=== PATIENT | male | born 1990 | race Caucasian/White ===

== ENCOUNTER 2017-06-17 12:00 | Emergency (ER) | payer OTHER ==
[~2017-06-17] VITALS: Ht 180.3 cm; Wt 62.1 kg
[2017-06-17 12:02] VITALS: BP 147/96
[2017-06-17] MEDS ORDERED: PROPARACAINE OPHTH 0.5%, 15ML EACHEYE ONE (13:30)
[2017-06-17] MEDS ORDERED: FLUORESCEIN OPHTHALMIC 1 MG STRIP EACHEYE ONE (13:30)
[2017-06-17] MEDS ORDERED: FLUORESCEIN OPHTHALMIC 1 MG STRIP ONE (13:40)
[2017-06-17] MEDS ORDERED: PROPARACAINE OPHTH 0.5%, 15ML ONE (13:40)
== END 2017-06-17 14:29 | disposition home or self-care (01) ==
LOC: ED 14:15
DX: T15.92XA Foreign body on external eye, part unspecified, left eye, initial encounter (principal); M25.562 Pain in left knee; X58.XXXA Exposure to other specified factors, initial encounter; Y93.89 Activity, other specified; Y92.89 Other specified places as the place of occurrence of the external cause; Y99.8 Other external cause status
CPT/HCPCS: 65222; 99285

== ENCOUNTER 2017-06-17 18:36 | Emergency (ER) | payer OTHER ==
[2017-06-17] MEDS ORDERED: FLUORESCEIN OPHTHALMIC 1 MG STRIP ONE (18:53)
[2017-06-17] MEDS ORDERED: PROPARACAINE OPHTH 0.5%, 15ML ONE (18:53)
[2017-06-17 19:41] VITALS: BP 130/90
== END 2017-06-17 19:43 | disposition home or self-care (01) ==
LOC: ED 19:35
DX: S05.02XA Injury of conjunctiva and corneal abrasion without foreign body, left eye, initial encounter (principal); X58.XXXA Exposure to other specified factors, initial encounter; Y93.89 Activity, other specified; Y92.89 Other specified places as the place of occurrence of the external cause; Y99.8 Other external cause status
CPT/HCPCS: 99283

== ENCOUNTER 2017-06-24 00:59 | Emergency (ER) | payer OTHER ==
[~2017-06-24] VITALS: Ht 180.3 cm; Wt 64.0 kg
[2017-06-24] MEDS ORDERED: ZIPRASIDONE 20 MG INJ IM ONE ×4 (01:42→03:17)
[2017-06-24 02:46] LABS: DAU SCREEN DISCLAIMER
[2017-06-24 02:48] LABS: HEMATOCRIT 45.8 % (39.2-51.8); HEMOGLOBIN 15.7 g/dL (13.7-18.0); WHITE BLOOD COUNT 5.8 x10^3/uL (3.4-10)
[2017-06-24 02:55] LABS: BLOOD UREA NITROGEN 11 mg/dL (7-18)
[2017-06-24 02:57] LABS: ACETAMINOPHEN < 2 mcg/mL (10-30)
[2017-06-24 13:10] VITALS: BP 137/72
== END 2017-06-24 15:03 | disposition home or self-care (01) ==
LOC: ED 01:41
DX: F10.10 Alcohol abuse, uncomplicated (principal); F32.9 Major depressive disorder, single episode, unspecified
CPT/HCPCS: 36415; 80048; 80307; 80329; 82040; 85025; 96372; 99284; J3486; G0480

== ENCOUNTER 2018-11-16 18:10 | Emergency (ER) | payer OTHER ==
[~2018-11-16] VITALS: Ht 177.8 cm; Wt 62.8 kg
[2018-11-16 18:24] VITALS: BP 103/63
--- NOTE | 2018-11-16 19:04 | NUR ---
pa to bedside
[2018-11-16] MEDS ORDERED: KETOROLAC 30 MG/1 ML ONE (19:09)
[2018-11-16] MEDS ORDERED: KETOROLAC 30 MG/1 ML IM ONE (19:30)
== END 2018-11-16 19:21 | disposition home or self-care (01) ==
LOC: ED 19:00
DX: K02.9 Dental caries, unspecified (principal); F32.9 Major depressive disorder, single episode, unspecified; Z72.9 Problem related to lifestyle, unspecified; Z88.5 Allergy status to narcotic agent; Z88.6 Allergy status to analgesic agent; F17.200 Nicotine dependence, unspecified, uncomplicated
CPT/HCPCS: 96372; 99283; J1885